=== PATIENT | male | born 1960 | race Caucasian/White ===

== ENCOUNTER → 2021-01-18 08:55 | Outpatient (BNVA) | payer OTHER, SELFPAY | PROVIDERS: PCP Internal Medicine; Visit Provider Nurse Practitioner Family | DX: G89.29 Other chronic pain (principal); M53.9 Dorsopathy, unspecified; F11.20 Opioid dependence, uncomplicated; G62.9 Polyneuropathy, unspecified | CPT/HCPCS: 99202 ==

== ENCOUNTER → 2021-02-02 11:30 | Outpatient (BNVA) | payer OTHER, SELFPAY | PROVIDERS: PCP Internal Medicine; Visit Provider Nurse Practitioner Family | DX: F11.20 Opioid dependence, uncomplicated (principal); M53.9 Dorsopathy, unspecified; G62.9 Polyneuropathy, unspecified; G89.29 Other chronic pain | CPT/HCPCS: 99212 ==

== ENCOUNTER → 2021-02-14 11:02 | Outpatient (REF) | payer OTHER, SELFPAY ==
--- NOTE | 2021-02-14 11:09 | ECG_ITS ---
Test Reason : z91.89 Blood Pressure : / mmHG Vent. Rate : 071 BPM Atrial Rate : 000 BPM P-R Int : 000 ms QRS Dur : 098 ms QT Int : 398 ms P-R-T Axes : 000 073 050 degrees QTc Int : 432 ms Atrial fibrillation Abnormal ECG No previous ECGs available Referred By: Debra Julian Electronically Signed By:HELEN LUCERO MD
== END ==
LOC: HO.CARD 11:02
PROVIDERS: Visit Provider Nurse Practitioner Family
DX: Z91.89 Other specified personal risk factors, not elsewhere classified (principal)
CPT/HCPCS: 93005

== ENCOUNTER → 2021-02-16 10:32 | Outpatient (BNVA) | payer OTHER, SELFPAY | PROVIDERS: PCP Internal Medicine; Visit Provider Nurse Practitioner Family | DX: Z51.81 Encounter for therapeutic drug level monitoring (principal); F11.20 Opioid dependence, uncomplicated; M96.1 Postlaminectomy syndrome, not elsewhere classified; G62.9 Polyneuropathy, unspecified; G89.29 Other chronic pain; M53.9 Dorsopathy, unspecified; Z79.82 Long term (current) use of aspirin | CPT/HCPCS: 99212 ==

== ENCOUNTER → 2021-03-16 09:12 | Outpatient (BNVA) | payer OTHER, SELFPAY | PROVIDERS: Visit Provider Nurse Practitioner Family | DX: M96.1 Postlaminectomy syndrome, not elsewhere classified (principal); G89.29 Other chronic pain; M53.9 Dorsopathy, unspecified; G62.9 Polyneuropathy, unspecified; Z79.891 Long term (current) use of opiate analgesic | CPT/HCPCS: 99212 ==

== ENCOUNTER → 2021-04-13 09:20 | Outpatient (BNVA) | payer OTHER, SELFPAY | PROVIDERS: Visit Provider Nurse Practitioner Family | DX: Z51.81 Encounter for therapeutic drug level monitoring (principal); F11.20 Opioid dependence, uncomplicated; M53.9 Dorsopathy, unspecified; M96.1 Postlaminectomy syndrome, not elsewhere classified; G62.9 Polyneuropathy, unspecified; G89.29 Other chronic pain | CPT/HCPCS: 99212 ==

== ENCOUNTER → 2021-04-29 08:34 | Outpatient (BNVA) | payer OTHER, SELFPAY | PROVIDERS: PCP Internal Medicine; Visit Provider Nurse Practitioner Family | DX: M53.9 Dorsopathy, unspecified (principal); M96.1 Postlaminectomy syndrome, not elsewhere classified; G62.9 Polyneuropathy, unspecified; G89.29 Other chronic pain; F11.20 Opioid dependence, uncomplicated | CPT/HCPCS: 99212 ==

== ENCOUNTER → 2021-05-11 09:06 | Outpatient (BNVA) | payer OTHER, SELFPAY | PROVIDERS: Visit Provider Nurse Practitioner Family | DX: M53.9 Dorsopathy, unspecified (principal); G62.9 Polyneuropathy, unspecified; G89.29 Other chronic pain; M96.1 Postlaminectomy syndrome, not elsewhere classified; Z79.891 Long term (current) use of opiate analgesic | CPT/HCPCS: 99212 ==

== ENCOUNTER 2021-05-20 09:48 | Outpatient (REF) | payer OTHER, SELFPAY ==
[2021-05-20 14:18] LABS: Anion Gap 17 (12-20); Blood Urea Nitrogen 13 mg/dL (9-16); Calcium 9.3 mg/dL (8.4-10.2); Carbon Dioxide 26 mmol/L (22-29); Chloride 103 mmol/L (96-108); Estimated Glomerular Filt Rate > 60; Glucose Random 175 mg/dL (60-115); Potassium 4.7 mmol/L (3.3-5.1); Sodium 141 mmol/L (135-145)
== END 2021-05-20 09:49 | disposition home or self-care (01) ==
LOC: HO.LAB 09:48
PROVIDERS: PCP Internal Medicine; Visit Provider Nurse Practitioner Family
DX: Z01.818 Encounter for other preprocedural examination (principal); M53.9 Dorsopathy, unspecified; G62.9 Polyneuropathy, unspecified; G89.29 Other chronic pain; F11.90 Opioid use, unspecified, uncomplicated; M96.1 Postlaminectomy syndrome, not elsewhere classified; M79.602 Pain in left arm; M79.601 Pain in right arm; Z79.899 Other long term (current) drug therapy
CPT/HCPCS: 36415; 80048; 99212

== ENCOUNTER → 2021-06-17 11:08 | Outpatient (BNVA) | payer OTHER, SELFPAY | PROVIDERS: PCP Internal Medicine; Visit Provider Nurse Practitioner Family | DX: Z51.81 Encounter for therapeutic drug level monitoring (principal); F11.20 Opioid dependence, uncomplicated; M96.1 Postlaminectomy syndrome, not elsewhere classified; M53.9 Dorsopathy, unspecified; E11.42 Type 2 diabetes mellitus with diabetic polyneuropathy; G89.29 Other chronic pain | CPT/HCPCS: 99212 ==

== ENCOUNTER → 2021-07-20 11:27 | Outpatient (BNVA) | payer OTHER, SELFPAY | PROVIDERS: PCP Internal Medicine; Visit Provider Anesthesiology | DX: Z79.899 Other long term (current) drug therapy (principal) ==

== ENCOUNTER → 2021-08-17 11:18 | Outpatient (BNVA) | payer OTHER, SELFPAY | PROVIDERS: PCP Internal Medicine; Visit Provider Nurse Practitioner Family | DX: Z79.891 Long term (current) use of opiate analgesic (principal) | CPT/HCPCS: 99211 ==

== ENCOUNTER → 2021-09-14 10:44 | Outpatient (BNVA) | payer OTHER, SELFPAY | PROVIDERS: PCP Internal Medicine; Visit Provider Anesthesiology | DX: Z51.81 Encounter for therapeutic drug level monitoring (principal); F11.20 Opioid dependence, uncomplicated; M53.9 Dorsopathy, unspecified; M96.1 Postlaminectomy syndrome, not elsewhere classified; G62.9 Polyneuropathy, unspecified; G89.29 Other chronic pain; E11.9 Type 2 diabetes mellitus without complications | CPT/HCPCS: 99212 ==

== ENCOUNTER → 2021-10-12 09:18 | Outpatient (BNVA) | payer OTHER, SELFPAY | PROVIDERS: PCP Internal Medicine; Visit Provider Anesthesiology | DX: G89.29 Other chronic pain (principal); M53.9 Dorsopathy, unspecified; M96.1 Postlaminectomy syndrome, not elsewhere classified; G62.9 Polyneuropathy, unspecified; E11.9 Type 2 diabetes mellitus without complications; Z79.891 Long term (current) use of opiate analgesic | CPT/HCPCS: 99212 ==

== ENCOUNTER → 2021-11-09 10:12 | Outpatient (BNVA) | payer OTHER, SELFPAY | PROVIDERS: PCP Internal Medicine; Visit Provider Anesthesiology | DX: Z51.81 Encounter for therapeutic drug level monitoring (principal); F11.20 Opioid dependence, uncomplicated | CPT/HCPCS: 99211 ==

== ENCOUNTER → 2021-11-21 09:51 | Outpatient (BNVA) | payer OTHER, SELFPAY | PROVIDERS: PCP Internal Medicine; Visit Provider Anesthesiology | DX: M96.1 Postlaminectomy syndrome, not elsewhere classified (principal); G89.29 Other chronic pain; M53.9 Dorsopathy, unspecified; G62.9 Polyneuropathy, unspecified; E11.9 Type 2 diabetes mellitus without complications; F11.20 Opioid dependence, uncomplicated | CPT/HCPCS: 99212; J7336 ==

== ENCOUNTER → 2022-01-04 09:38 | Outpatient (BNVA) | payer OTHER, SELFPAY | PROVIDERS: PCP Internal Medicine; Visit Provider Anesthesiology | DX: Z51.81 Encounter for therapeutic drug level monitoring (principal); F11.20 Opioid dependence, uncomplicated; M53.9 Dorsopathy, unspecified; G62.9 Polyneuropathy, unspecified; M96.1 Postlaminectomy syndrome, not elsewhere classified; E11.9 Type 2 diabetes mellitus without complications; G89.29 Other chronic pain | CPT/HCPCS: 99212 ==

== ENCOUNTER → 2022-03-08 09:28 | Outpatient (BNVA) | payer OTHER, SELFPAY | PROVIDERS: PCP Internal Medicine; Visit Provider Anesthesiology | DX: Z51.81 Encounter for therapeutic drug level monitoring (principal); F11.20 Opioid dependence, uncomplicated | CPT/HCPCS: 99211 ==

== ENCOUNTER → 2022-05-03 09:34 | Outpatient (BNVA) | payer OTHER, SELFPAY | PROVIDERS: PCP Internal Medicine; Visit Provider Anesthesiology | DX: Z51.81 Encounter for therapeutic drug level monitoring (principal); F11.20 Opioid dependence, uncomplicated; M53.9 Dorsopathy, unspecified; G62.9 Polyneuropathy, unspecified; M96.1 Postlaminectomy syndrome, not elsewhere classified; G89.29 Other chronic pain; E11.9 Type 2 diabetes mellitus without complications | CPT/HCPCS: 99212 ==

== ENCOUNTER → 2022-07-03 09:49 | Outpatient (BNVA) | payer OTHER, SELFPAY | PROVIDERS: PCP Internal Medicine; Visit Provider Anesthesiology | DX: Z51.81 Encounter for therapeutic drug level monitoring (principal); F11.20 Opioid dependence, uncomplicated; M53.9 Dorsopathy, unspecified; M96.1 Postlaminectomy syndrome, not elsewhere classified; G62.9 Polyneuropathy, unspecified; G89.29 Other chronic pain; E11.9 Type 2 diabetes mellitus without complications | CPT/HCPCS: 99212 ==

== ENCOUNTER → 2022-09-04 09:01 | Outpatient (BNVA) | payer OTHER, SELFPAY | PROVIDERS: PCP Internal Medicine; Visit Provider Anesthesiology | DX: Z51.81 Encounter for therapeutic drug level monitoring (principal); F11.20 Opioid dependence, uncomplicated; M53.9 Dorsopathy, unspecified; M96.1 Postlaminectomy syndrome, not elsewhere classified; G62.9 Polyneuropathy, unspecified; G89.29 Other chronic pain; E11.9 Type 2 diabetes mellitus without complications | CPT/HCPCS: 99212 ==

== ENCOUNTER 2022-11-01 09:44 | Outpatient (AMB) | payer OTHER, SELFPAY ==
--- NOTE | 2022-11-01 10:03 | A.OFFVIS_ITS ---
Intake Vital Signs 11/01/22 10:09 Height 6 ft 1 in Weight 245 lb BMI 32.3 BP 106/64 Blood Pressure Location Lt brachial Position Sitting Respiration 18 Pulse 89 Pulse Source Pulse Oximeter Pulse Oximetry (%) 99 Oxygen Delivery Method Room Air Intake Visit Reasons: Film count Intake Note: patient comes in for pill count to Buprenorphine film. Allergies morphine Adverse Reaction (Intermediate, Verified 11/01/22 10:09) itch HPI HPI Comments History of Present Illness Details Andre returns to my office for a film count.? He presented himself with 7 films in his possession. He is supposed to take 8 pills in his possession. Again technically his film count is correct today. We will schedule him for another pill count in 1 month. He reports his pain level today is 8 out of 10 to 9/10. He reports that medication does not help him much. He reports gabapentin which was prescribed to him by primary care physician does not help him but he denies any side effects. I offered him to prescribe almost maximum dose of gabapentin to see if this will be helpful for his pain. In the past he refused to go for SCS although it was strongly advised for him to go. I was planning to do Nevro SCS to treat his pain. We can try Intrathecal drug delivery system for him with bupivacaine to treat his pain. He was given brochure from [employer] about pain pump I warned him that in his case this will be non opioid medication bupivacaine. I offered him to go for psychological evaluation but he told me that he wants to read the brochure 1st. Next time he is here I will be asking again about his decision on neuromodulation. Prior: He tries [employer] application and reports no improvement for his pain.? Nevro SCS was offered in the past.? Patient is not sure if he wants to go for it.? He was on Lyrica in the past but did not like it.? He also reports that now he feels pain, paresthesia, burning and tingling sensation in hands alongside h is feet and lower legs.?? ?He denies any side effects. He again reports his neuropathy has been severe and preventing him from sleeping at night. Initially he presented with neuropathy of bilateral feet and over the past few months, his symptoms have progressed up the leg as well as into BUE. As noted above, he has discontinued his lyrica and amitriptyline. Previously on scheduled to opioids such as methadone and oxycodone.? Was changed to Belbuca.? Initially did not like it.? Now he is getting more accustomed to the medication reports good help from [facility]. Review of Systems Const All systems reviewed & are unremarkable except as noted in HPI and below Neuro Denies Abnormal speech present and Denies confusion Psych Denies confusion Physical Exam Vital Signs: Last Vital Signs Pulse 89 11/01/22 10:09 Resp 18 11/01/22 10:09 BP 106/64 11/01/22 10:09 Pulse Ox 99 11/01/22 10:09 Oxygen Delivery Method Room Air 11/01/22 10:09 BMI result Body Mass Index 32.3 Const General: No confusion Nutritional Appearance: overweight Orientation/consciousness: No confusion Limitations: no limitations HEENT Head: Yes normocephalic and Yes atraumatic Ears: hearing grossly normal bilaterally Eyes General: appearance normal, both eyes and all related structures Eyelids: Yes eyelids normal Pupils: Equal, round and reactive pupils present EOM: EOMs intact bilaterally Neck Neck: Yes normal visual inspection and Yes no JVD Resp Effort & Inspection: normal respiratory effort, able to speak in complete sentences and no audible wheezes Cardio Jugular venous distension: no JVD Neuro Other: Severe paresthesia in bilateral lower and upper extremities inform of burning tingling and pins and needle sensations. Allodynia on physical exam. Feet are more aggravated compared to hands. General: No confusion Cranial nerves: Yes Equal, round and reactive pupils present Speech: No Abnormal speech present Extrem Other: On physical exam severe tenderness and swelling of the left 1st toe. Some discoloration is observed as well with red -blue hue. Psych Appearance: grossly normal Mental Status: mental status grossly normal Speech and movement: Normal speech and movement present Affect: Anxious affect present and Irritable affect present Attitude: cooperative Thought process: Circumstantial thought process present Thought content: Normal thought content present Insight: Fair insight present (Psych) Judgement: Fair judgement present (Psych) Assessment & Plan Assessment & Plan (1) Multilevel degenerative disc disease: Code(s): M53.9 - Dorsopathy, unspecified (2) Peripheral neuropathy: Code(s): G62.9 - Polyneuropathy, unspecified (3) Chronic pain: Code(s): G89.29 - Other chronic pain (4) Chronic, continuous use of opioids: Code(s): F11.90 - Opioid use, unspecified, uncomplicated (5) Post-laminectomy syndrome: Code(s): M96.1 - Postlaminectomy syndrome, not elsewhere classified (6) Diabetes: Code(s): E11.9 - Type 2 diabetes mellitus without complications Plan He again is 1 film short today. Technically his pill count is correct. He reports that his pain is getting worse. The conversation about Nevro SCS went nowhere again. He is very reluctant to consider it. He is at maximum dose of Belbuca. He was on gabapentin in the past it was 300 mg t.i.d.. I offered him to increase the dose to 800 since he has no reportable side effects. His neuropathy is getting out of control. We discussed pain pump with bupivacaine to treat his condition. I will schedule him for the appointment in 1 month. I offered him today to consider psychological evaluation he adamantly refused. I will be asking him again next time he is here whether not he wants to go to psych evaluation to have a trial of intrathecal drug delivery system pain pump with bupivacaine. . He is recommended to have consultation with exercise physiology professor. I offered him referral to exercise physiology professor within [facility] however patient wants to go to exercise physiology professor closer to his home. He will ask his primary care physician to get him endocrinology referral. At the same time he does not even know his hemoglobin A1c number. His he should be interested in that 1st of all. I will renew his Belbuca prescription. Will see him in 1 month. Medications: New gabapentin 800 mg PO TID 90 tabs 8RF 30 days Refilled buprenorphine HCl 900 mcg buccal Q12H PRN 60 ea 1RF pain 30 days Discontinued pregabalin Discontinued Reason: Doctor's Order 100 mg PO BID 60 caps 5RF 30 days Coding Level of Care Code Est Pt Level 4 (04225) Diagnoses Multilevel degenerative disc disease M53.9 Peripheral neuropathy G62.9 Chronic pain G89.29 Chronic, continuous use of opioids F11.90 Post-laminectomy syndrome M96.1 Diabetes E11.9
[2022-11-01 10:09] VITALS: BP 106/64; PULSE 89; RESP 18; O2SAT 99; BMI 32.3
== END 2022-11-01 10:28 | disposition home or self-care (01) ==
PROVIDERS: PCP Internal Medicine; Visit Provider Anesthesiology
DX: M53.9 Dorsopathy, unspecified (principal); G62.9 Polyneuropathy, unspecified; G89.29 Other chronic pain; Z79.891 Long term (current) use of opiate analgesic; M96.1 Postlaminectomy syndrome, not elsewhere classified; E11.9 Type 2 diabetes mellitus without complications
CPT/HCPCS: 99214

== ENCOUNTER → 2022-11-01 09:44 | Outpatient (BNVA) | payer OTHER, SELFPAY | PROVIDERS: PCP Internal Medicine; Visit Provider Anesthesiology | DX: M53.9 Dorsopathy, unspecified (principal); G89.29 Other chronic pain; M96.1 Postlaminectomy syndrome, not elsewhere classified; E11.42 Type 2 diabetes mellitus with diabetic polyneuropathy; Z79.891 Long term (current) use of opiate analgesic | CPT/HCPCS: 99212 ==

== ENCOUNTER 2022-12-04 09:38 | Outpatient (AMB) | payer OTHER, SELFPAY ==
--- NOTE | 2022-12-04 10:12 | MHC.OFFVIS ---
Intake Vital Signs 12/04/22 10:18 Height 6 ft 1 in Weight 246 lb BMI 32.5 BP 126/86 Blood Pressure Location Lt brachial Position Sitting Respiration 18 Pulse 95 Pulse Source Pulse Oximeter Pulse Oximetry (%) 97 Oxygen Delivery Method Room Air Intake Visit Reasons: Pill count/Confirmed Intake Note: patient comes in for pill count. Allergies morphine Adverse Reaction (Intermediate, Verified 12/04/22 10:18) itch HPI HPI Comments History of Present Illness Details Andre is here again for a film count.? He reports his pain today 10/12. He presented himself with 57 films in his possession. He is supposed to take 56 pills in his possession. His film count is correct today. He denies side effect of the opioid medications, he denies constipation. He denies any significant help from the opioid medications. He was prescribed gabapentin and he reports that gabapentin makes him drowsy. I recommended him to take at least 1 pill at night so maybe it will help his pain next day. He is negative about neuromodulation. Bupivacaine I DDD and SCS Nevro were offered to the patient. Has diabetic neuropathy which could be treated with Nevro SCS. He reports that now he feels pain, paresthesia, burning and tingling sensation in hands alongside his feet and lower legs.?? his neuropathy has been severe and preventing him from sleeping at night. Initially he presented with neuropathy of bilateral feet and over the past few months, his symptoms have progressed up the leg as well as into BUE. he has discontinued his lyrica and amitriptyline. Previously on scheduled to opioids such as methadone and oxycodone.? Was changed to Belbuca.? Initially did not like it.? Now he is getting more accustomed to the medication reports good help from Belbuca. Review of Systems Const All systems reviewed & are unremarkable except as noted in HPI and below Neuro Denies Abnormal speech present and Denies confusion Psych Denies confusion Physical Exam Vital Signs: Last Vital Signs Pulse 95 12/04/22 10:18 Resp 18 12/04/22 10:18 BP 126/86 12/04/22 10:18 Pulse Ox 97 12/04/22 10:18 Oxygen Delivery Method Room Air 12/04/22 10:18 BMI result Body Mass Index 32.5 Const General: No confusion Nutritional Appearance: overweight Orientation/consciousness: No confusion Limitations: no limitations HEENT Head: Yes normocephalic and Yes atraumatic Ears: hearing grossly normal bilaterally Eyes General: appearance normal, both eyes and all related structures Eyelids: Yes eyelids normal Pupils: Equal, round and reactive pupils present EOM: EOMs intact bilaterally Neck Neck: Yes normal visual inspection and Yes no JVD Resp Effort & Inspection: normal respiratory effort, able to speak in complete sentences and no audible wheezes Cardio Jugular venous distension: no JVD Neuro Other: Severe paresthesia in bilateral lower and upper extremities inform of burning tingling and pins and needle sensations. Allodynia on physical exam. Feet are more aggravated compared to hands. General: No confusion Cranial nerves: Yes Equal, round and reactive pupils present Speech: No Abnormal speech present Extrem Other: On physical exam severe tenderness and swelling of the left 1st toe. Some discoloration is observed as well with red -blue hue. Psych Appearance: grossly normal Mental Status: mental status grossly normal Speech and movement: Normal speech and movement present Affect: Anxious affect present and Irritable affect present Attitude: cooperative Thought process: Circumstantial thought process present Thought content: Normal thought content present Insight: Fair insight present (Psych) Judgement: Fair judgement present (Psych) Assessment & Plan Assessment & Plan (1) Multilevel degenerative disc disease: Code(s): M53.9 - Dorsopathy, unspecified (2) Peripheral neuropathy: Code(s): G62.9 - Polyneuropathy, unspecified (3) Chronic pain: Code(s): G89.29 - Other chronic pain (4) Chronic, continuous use of opioids: Code(s): F11.90 - Opioid use, unspecified, uncomplicated (5) Post-laminectomy syndrome: Code(s): M96.1 - Postlaminectomy syndrome, not elsewhere classified (6) Diabetes: Code(s): E11.9 - Type 2 diabetes mellitus without complications Plan His pill count is correct today. He is due for new prescription on 12/31/2022. I will send his prescription to his pharmacy. He reports that his pain is getting worse. He reports pain 8/10 today. The conversation about Nevro SCS or I DDD went nowhere again. He is very reluctant to consider it. He is at maximum dose of Belbuca. He reports gabapentin makes him drowsy. I encouraged him to take it at night. So he might have at least some pain relieve during the daytime on next day after taking. His neuropathy is getting out of control. We discussed pain pump with bupivacaine to treat his condition. I will schedule him for the appointment in 1 month. . Medications: Refilled buprenorphine HCl 900 mcg buccal Q12H PRN 60 ea 1RF pain 30 days Coding Level of Care Code Est Pt Level 4 (12549) Diagnoses Multilevel degenerative disc disease M53.9 Peripheral neuropathy G62.9 Chronic pain G89.29 Chronic, continuous use of opioids F11.90 Post-laminectomy syndrome M96.1 Diabetes E11.9
[2022-12-04 10:18] VITALS: BP 126/86; PULSE 95; RESP 18; O2SAT 97; BMI 32.5
== END 2022-12-04 10:27 | disposition home or self-care (01) ==
PROVIDERS: PCP Internal Medicine; Visit Provider Anesthesiology
DX: G89.29 Other chronic pain (principal); G62.9 Polyneuropathy, unspecified; M53.9 Dorsopathy, unspecified; Z79.891 Long term (current) use of opiate analgesic; M96.1 Postlaminectomy syndrome, not elsewhere classified; E11.9 Type 2 diabetes mellitus without complications
CPT/HCPCS: 99214

== ENCOUNTER → 2022-12-04 09:38 | Outpatient (BNVA) | payer OTHER, SELFPAY | PROVIDERS: PCP Internal Medicine; Visit Provider Anesthesiology | DX: M96.1 Postlaminectomy syndrome, not elsewhere classified (principal); M53.9 Dorsopathy, unspecified; G62.9 Polyneuropathy, unspecified; G89.29 Other chronic pain; E11.9 Type 2 diabetes mellitus without complications; Z79.891 Long term (current) use of opiate analgesic | CPT/HCPCS: 99212 ==

== ENCOUNTER 2023-01-03 09:39 | Outpatient (AMB) | payer OTHER, SELFPAY ==
--- NOTE | 2023-01-03 09:42 | MHC.OFFVIS ---
Intake Vital Signs 01/03/23 09:44 Height 6 ft 1 in Weight 248 lb BMI 32.7 Blood Pressure Location Rt brachial Position Sitting Respiration 12 Pulse Source Pulse Oximeter Oxygen Delivery Method Room Air Intake Visit Reasons: PILL COUNT /Confirmed Intake Note: Pt states he last took Belbuca 01/03/23 @ 6am Allergies morphine Adverse Reaction (Intermediate, Verified 01/03/23 09:45) itch Medication List - Last Reconciled 01/03/23 by Lena Callejas LPN amitriptyline 10 mg PO BEDTIME apixaban (Eliquis) 5 mg PO BID atorvastatin 80 mg PO DAILY buprenorphine HCl 900 mcg buccal Q12H PRN 30 days clonidine HCl 0.1 mg PO BID PRN gabapentin 800 mg PO TID 30 days lidocaine 5% 2 patches topical DAILY 30 days lidocaine-prilocaine 2.5-2.5 % 1 appl topical ONCE metoprolol tartrate 25 mg PO BID naloxone 4 mg/actuation (Narcan) 4 mg intranasal Q2M PRN omeprazole 20 mg PO DAILY HPI HPI Comments History of Present Illness Details Andre is here again for a film count.? He reports his pain today 10/12. He is very upset and he requests me to switch him from Belbuca to methadone. Prolonged and very difficult conversation ensued. I told him that methadone is very dangerous medication and it affect older people the most. I told him that I will start with smallest dose possible probably 2.5 mg per day only after he will submit electrocardiogram to me. He refused. Unfortunately he is adamantly negative about interventional pain management. I explained to him that there are physicians in town who are prescribing opioid medications without any interventions. I told him to look for the names of those physicians online. Pill count today: He presented himself with 53 films in his possession. He is supposed to have 54 films. He is negative about neuromodulation. Bupivacaine I DDD and SCS Nevro were offered to the patient. Has diabetic neuropathy which could be treated with Nevro SCS. He reports that now he feels pain, paresthesia, burning and tingling sensation in hands alongside his feet and lower legs.?? his neuropathy has been severe and preventing him from sleeping at night. Initially he presented with neuropathy of bilateral feet and over the past few months, his symptoms have progressed up the leg as well as into BUE. he has discontinued his lyrica and amitriptyline. Previously on scheduled to opioids such as methadone and oxycodone.? Was changed to Belbuca.? Initially did not like it.? Now he is getting more accustomed to the medication reports good help from [facility]. Review of Systems Const All systems reviewed & are unremarkable except as noted in HPI and below Neuro Denies Abnormal speech present and Denies confusion Psych Denies confusion Physical Exam Vital Signs: Last Vital Signs Resp 12 01/03/23 09:44 Oxygen Delivery Method Room Air 01/03/23 09:44 BMI result Body Mass Index 32.7 Const General: No confusion Nutritional Appearance: overweight Orientation/consciousness: No confusion Limitations: no limitations HEENT Head: Yes normocephalic and Yes atraumatic Ears: hearing grossly normal bilaterally Eyes General: appearance normal, both eyes and all related structures Eyelids: Yes eyelids normal Pupils: Equal, round and reactive pupils present EOM: EOMs intact bilaterally Neck Neck: Yes normal visual inspection and Yes no JVD Resp Effort & Inspection: normal respiratory effort, able to speak in complete sentences and no audible wheezes Cardio Jugular venous distension: no JVD Neuro Other: Severe paresthesia in bilateral lower and upper extremities inform of burning tingling and pins and needle sensations. Allodynia on physical exam. Feet are more aggravated compared to hands. General: No confusion Cranial nerves: Yes Equal, round and reactive pupils present Speech: No Abnormal speech present Extrem Other: On physical exam severe tenderness and swelling of the left 1st toe. Some discoloration is observed as well with red -blue hue. Psych Appearance: grossly normal Mental Status: mental status grossly normal Speech and movement: Normal speech and movement present Affect: Anxious affect present and Irritable affect present Attitude: cooperative Thought process: Circumstantial thought process present Thought content: Normal thought content present Insight: Fair insight present (Psych) Judgement: Fair judgement present (Psych) Assessment & Plan Assessment & Plan (1) Multilevel degenerative disc disease: Code(s): M53.9 - Dorsopathy, unspecified (2) Peripheral neuropathy: Code(s): G62.9 - Polyneuropathy, unspecified (3) Chronic pain: Code(s): G89.29 - Other chronic pain (4) Chronic, continuous use of opioids: Code(s): F11.90 - Opioid use, unspecified, uncomplicated (5) Post-laminectomy syndrome: Code(s): M96.1 - Postlaminectomy syndrome, not elsewhere classified (6) Diabetes: Code(s): E11.9 - Type 2 diabetes mellitus without complications Plan His film count is correct today. He is due for new prescription on 01/30/2023. I will send his prescription to his pharmacy with 1 refill.. The conversation about Nevro SCS or I DDD went nowhere again. He is very reluctant to consider it. He wants me to switch him to methadone however without equi analgesic doses between Belbuca and methadone I need to start methadone at small is doses probably 2.5 mg b.i.d.. He refused. I again offered him neuromodulation and he refused again, he said that he many attempts to try in the past. In my knowledge he did not try any neuromodulation. I recommended him to find another physician who will be prescribing medications to his liking. He is at maximum dose of Belbuca. He reports gabapentin makes him drowsy. I encouraged him to take it at night. So he might have at least some pain relieve during the daytime on next day after taking. His neuropathy is getting out of control. I will schedule him for the appointment in 2 month. . Medications: Refilled buprenorphine HCl 900 mcg buccal Q12H PRN 60 ea 1RF pain 30 days Patient Instructions: I here by testify that I spent 35 minutes in conversation with this patient as well as planning his care and organizing his note. Coding Level of Care Code Est Pt Level 4 (21323) Diagnoses Multilevel degenerative disc disease M53.9 Peripheral neuropathy G62.9 Chronic pain G89.29 Chronic, continuous use of opioids F11.90 Post-laminectomy syndrome M96.1 Diabetes E11.9
[2023-01-03 09:44] VITALS: RESP 12; BMI 32.7
== END 2023-01-03 10:12 | disposition home or self-care (01) ==
PROVIDERS: PCP Internal Medicine; Visit Provider Anesthesiology
DX: M53.9 Dorsopathy, unspecified (principal); G62.9 Polyneuropathy, unspecified; G89.29 Other chronic pain; Z79.891 Long term (current) use of opiate analgesic; M96.1 Postlaminectomy syndrome, not elsewhere classified; E11.9 Type 2 diabetes mellitus without complications
CPT/HCPCS: 99214

== ENCOUNTER → 2023-01-03 09:39 | Outpatient (BNVA) | payer OTHER, SELFPAY | PROVIDERS: PCP Internal Medicine; Visit Provider Anesthesiology | DX: M53.9 Dorsopathy, unspecified (principal); G62.9 Polyneuropathy, unspecified; G89.29 Other chronic pain; M96.1 Postlaminectomy syndrome, not elsewhere classified; E11.9 Type 2 diabetes mellitus without complications; Z79.891 Long term (current) use of opiate analgesic | CPT/HCPCS: 99212 ==

== ENCOUNTER → 2023-03-06 09:37 | Outpatient (BNVA) | payer OTHER, SELFPAY | PROVIDERS: PCP Internal Medicine; Visit Provider Nurse Practitioner Family | DX: M96.1 Postlaminectomy syndrome, not elsewhere classified (principal); M53.9 Dorsopathy, unspecified; G62.9 Polyneuropathy, unspecified; G89.29 Other chronic pain; Z79.891 Long term (current) use of opiate analgesic | CPT/HCPCS: 99212 ==

== ENCOUNTER 2023-03-06 09:38 | Outpatient (AMB) | payer OTHER, SELFPAY ==
--- NOTE | 2023-03-06 09:45 | MHC.OFFVIS ---
Intake Vital Signs 03/06/23 09:46 Height 6 ft 1 in Weight 252 lb BMI 33.2 BP 120/83 Blood Pressure Location Lt brachial Position Sitting Respiration 12 Pulse 100 Pulse Source Pulse Oximeter Intake Visit Reasons: PILL COUNT/lvm Intake Note: Pt states he last took belbuca 03/06/23 @ 5AM Allergies morphine Adverse Reaction (Intermediate, Verified 03/06/23 09:47) itch Medication List - Last Reconciled 03/06/23 by Lena Callejas LPN amitriptyline 10 mg PO BEDTIME apixaban (Eliquis) 5 mg PO BID atorvastatin 80 mg PO DAILY buprenorphine HCl 900 mcg buccal Q12H PRN 30 days clonidine HCl 0.1 mg PO BID PRN gabapentin 800 mg PO TID 30 days lidocaine 5% 2 patches topical DAILY 30 days lidocaine-prilocaine 2.5-2.5 % 1 appl topical ONCE metoprolol tartrate 25 mg PO BID naloxone 4 mg/actuation (Narcan) 4 mg intranasal Q2M PRN omeprazole 20 mg PO DAILY HPI HPI Comments History of Present Illness Details Patient presents today for pill count. Patient is supposed to have #42 Belbuca films, in his possession he presents with #39 films. Unfortunately, this demonstrates an irresponsible attitude towards his medication regimen. His prescription is for two films per day, therefore he is short 1.5 days. Patient reports he thought his refill was for 28 days. [facility] reviewed. Patient received #60 films of Belbuca 900 mcg on 02/25/23. Given his risk is low, he will be suspended for 6 months. Patient is aware that he will not be eligible for medical management through this office for 6 months. Patient is also aware that he can receive alternative interventional treatment options, such as a SCS trial or injections. Patient has expressed frustration with the guidelines and opioid contract but unfortunately his pill count was short for over 1 day. He is not interested in injections or SCS trial due to minimal of benefit with previous injections in the past. Denies any recent cough, cold, infection, fever or other significant changes in medical history since last office visit. PRIOR: Andre is here again for a film count.? He reports his pain today 10/12. He is very upset and he requests me to switch him from Belbuca to methadone. Prolonged and very difficult conversation ensued. I told him that methadone is very dangerous medication and it affect older people the most. I told him that I will start with smallest dose possible probably 2.5 mg per day only after he will submit electrocardiogram to me. He refused. Unfortunately he is adamantly negative about interventional pain management. I explained to him that there are physicians in town who are prescribing opioid medications without any interventions. I told him to look for the names of those physicians online. Pill count today: He presented himself with 53 films in his possession. He is supposed to have 54 films. He is negative about neuromodulation. Bupivacaine I DDD and SCS Nevro were offered to the patient. Has diabetic neuropathy which could be treated with Nevro SCS. He reports that now he feels pain, paresthesia, burning and tingling sensation in hands alongside his feet and lower legs.?? his neuropathy has been severe and preventing him from sleeping at night. Initially he presented with neuropathy of bilateral feet and over the past few months, his symptoms have progressed up the leg as well as into BUE. he has discontinued his lyrica and amitriptyline. Previously on scheduled to opioids such as methadone and oxycodone.? Was changed to Belbuca.? Initially did not like it.? Now he is getting more accustomed to the medication reports good help from Belbuca. [facility] Medical History (Updated 03/06/23 @ 12:12 by GÉNESIS Dailey) Myalgia Lumbar radiculopathy Lumbar spondylosis Sacroiliitis Neurogenic claudication Cervical spondylosis without myelopathy Spondylolysis Insomnia Primary osteoarthritis Bilateral knee pain Diabetes Post-laminectomy syndrome Chronic, continuous use of opioids Chronic pain Peripheral neuropathy Multilevel degenerative disc disease Surgical History (Updated 03/06/23 @ 12:08 by GÉNESIS Dailey) History of selective injection of anesthetic agent around lumbar nerve root Review of Systems Const All systems reviewed & are unremarkable except as noted in HPI and below Physical Exam Vital Signs: Last Vital Signs Pulse 100 03/06/23 09:46 Resp 12 03/06/23 09:46 BP 120/83 03/06/23 09:46 BMI result Body Mass Index 33.2 General: Appears afebrile. Alert and oriented. Mood and affect appropriate. Follows and participates in conversation appropriately. Respiratory effort is unlabored. No cough. Able to transition from sit to stand unassisted. Ambulates with bilaterally normal heel strike and toe off. Back/Spine/Pelvis Cervical Spine: cervical ROM normal, cervical muscular tenderness, pain with cervical ROM and No Cervical spine tenderness Thoracic/Lumbar Spine: Thoracic/lumbar spine scar(s), pain with thoraco-lumbar ROM, thoraco-lumbar ROM limited, No thoracic spinal tenderness and lumbar spinal tenderness at L4 and at L5 Extrem General: Yes capillary refill normal, Yes no pedal edema and Yes no calf tenderness Psych Appearance: grossly normal Mental Status: mental status grossly normal Speech and movement: Normal speech and movement present and Clear speech present Affect: normal affect and Irritable affect present Attitude: cooperative Thought process: Normal thought process present Thought content: Normal thought content present, suicidality (none), no hallucinations and No Depressive thoughts present Insight: Fair insight present (Psych) Judgement: Fair judgement present (Psych) Results Reviewed Results Reviewed: No imaging results, we will for review today. Assessment & Plan Assessment & Plan (1) Multilevel degenerative disc disease: Code(s): M53.9 - Dorsopathy, unspecified (2) Peripheral neuropathy: Code(s): G62.9 - Polyneuropathy, unspecified (3) Chronic pain: Code(s): G89.29 - Other chronic pain (4) Chronic, continuous use of opioids: Code(s): F11.90 - Opioid use, unspecified, uncomplicated (5) Post-laminectomy syndrome: Code(s): M96.1 - Postlaminectomy syndrome, not elsewhere classified Plan Unfortunately, the patient?s pill count today was inaccurate for Belbuca films which will result in a suspension. Given his risk is low, he will be suspended for 6 months. Patient is aware that he will not be eligible for medical management through this office until 09/04/23. Patient is also aware that he can receive alternative treatment options, such as a SCS trial. He is against any interventional treatments as previous injections were not beneficial to him. Patient has expressed frustration with the guidelines and opioid contract but unfortunately her pill count was short for over 1 day. I will send in a compassionate prescription for one month for Belbuca in which he will need to taper himself off or reach out to his PCP to take over prescribing for 5 months. Discussed treatments for potential withdrawal symptoms. All questions were answered and the patient agreed with the plan. Follow up as needed. Medications: Changed From buprenorphine HCl 900 mcg buccal Q12H 30 days PRN 60 ea 1RF pain To buprenorphine HCl Partial Fill upon patient request. 900 mcg buccal Q12H 30 days PRN 60 ea 1RF pain Coding Level of Care Code Est Pt Level 4 (69717) Diagnoses Multilevel degenerative disc disease M53.9 Peripheral neuropathy G62.9 Chronic pain G89.29 Chronic, continuous use of opioids F11.90 Post-laminectomy syndrome M96.1
[2023-03-06 09:46] VITALS: BP 120/83; PULSE 100; RESP 12; BMI 33.2
== END 2023-03-06 10:02 | disposition home or self-care (01) ==
PROVIDERS: PCP Internal Medicine; Visit Provider Nurse Practitioner Family
DX: M53.9 Dorsopathy, unspecified (principal); G62.9 Polyneuropathy, unspecified; G89.29 Other chronic pain; Z79.891 Long term (current) use of opiate analgesic; M96.1 Postlaminectomy syndrome, not elsewhere classified
CPT/HCPCS: 99214